=== PATIENT | female | born 1935 | race Caucasian/White ===

== ENCOUNTER 2017-04-14 18:10 | Emergency (ER) | END 2017-04-14 21:53 | disposition home or self-care (01) ==

== ENCOUNTER 2018-11-02 19:48 | Emergency (ER) | payer MEDICARE, OTHER ==
[~2018-11-02] VITALS: Ht 167.6 cm; Wt 91.1 kg
[~2018-11-02 19:48] MED LIST: ALEN35TA12 PO; AMIO100T3 PO; AMOX1TAB10 PO; CEPH-443 PO; DOCU-144 PO; FAMO20TA18 PO; FURO20TA3 PO; GABA300C16 PO; METO-319 PO; METR-121 PO; POLY17PO6 PO; RSV10T PO; VALS160T20 PO
[2018-11-02 19:51] VITALS: Ht 167.6 cm; Wt 91.1 kg
--- NOTE | 2018-11-03 00:14 | ERD ---
ER Documentation Chief Complaint Chief Complaint constipated x 3 days; always freezing; took PeptoBismol ALICE Is a pleasant 83-year-old female presents for constipation for the last 3 days. She took Pepto-Bismol without relief, there are no aggravating factors, she has a history of recurrent constipation, she denies any vomiting, she has not a fever, she has no chest pain shortness of breath, her symptoms are intermittent. They described as dull. ROS All systems reviewed and are negative except as per history of present illness. Medications Home Meds Active Scripts Metronidazole (Flagyl) 500 Mg Tab, 500 MG PO Q8 for 10 Days, TAB Prov:GEOFFREY GREGG MD 11/03/18 Amoxicillin/Potassium Clav (Amox-Clav 875-125 mg Tablet) 875-125 mg Tab, 1 TAB PO BID for 10 Days, #20 TAB Prov:GEOFFREY GREGG MD 11/03/18 Cephalexin* (Keflex*) 500 Mg Capsule, 500 MG PO QID for 5 Days, CAP Prov:GEOFFREY LIMON MD 04/14/17 Polyethylene Glycol* (Miralax*) 17 Gm Powd.pack, 17 GM PO DAILY for CONSTIPATION, #1 BOTTLE Prov:GEOFFREY LIMON MD 04/14/17 Docusate Sodium* (Colace*) 100 Mg Capsule, 100 MG PO BID for CONSTIPATION, #30 CAP Prov:GEOFFREY LIMON MD 04/14/17 Reported Medications Rosuvastatin Calcium* (Crestor*) 10 Mg Tablet, 10 MG PO QHS, #30 TAB 04/14/17 Alendronate Sodium* (Alendronate Sodium*) 35 Mg Tablet, 35 MG PO Q7D, #4 TAB 04/14/17 Gabapentin* (Gabapentin*) 300 Mg Capsule, 300 MG PO TID, #90 CAP 04/14/17 Amiodarone Hcl* (Pacerone*) 100 Mg Tablet, 100 MG PO BID, TAB 04/14/17 Metoprolol Succinate* (Toprol XL*) 50 Mg Tab.er.24h, 50 MG PO DAILY, #30 TAB 04/14/17 Famotidine* (Famotidine*) 20 Mg Tablet, 20 MG PO BID, #60 TAB 04/14/17 Furosemide* (Furosemide*) 20 Mg Tablet, 20 MG PO DAILY, #60 TAB 04/14/17 Discontinued Reported Medications Valsartan* (Diovan*) 160 Mg Tablet, 160 MG PO DAILY, TAB 04/14/17 Allergies Allergies: Coded Allergies: No Known Allergy (Unverified , 11/03/18) PMhx/Soc History of Surgery: Yes (PACEMAKER) Anesthesia Reaction: No Hx Neurological Disorder: Yes (NEUROPATHY) Hx Respiratory Disorders: No Hx Cardiac Disorders: Yes (HTN, HYPERLIPIDS) Hx Psychiatric Problems: No Hx Miscellaneous Medical Probl: Yes (HYPERLIPEDEMIA) Hx Alcohol Use: No Hx Substance Use: No Hx Tobacco Use: No Smoking Status: Never smoker Physical Exam Vitals Vital Signs Date Temp Pulse Resp B/P (MAP) Pulse Ox O2 O2 Flow FiO2 Time Delivery Rate 11/03/18 98.0 59 17 107/63 97 Room Air 00:52 (78) 11/02/18 62 18 113/58 95 Room Air 21:28 (76) 11/02/18 99.0 82 20 118/57 94 19:51 (77) Physical Exam Const: No acute distress Head: Atraumatic Eyes: Normal Conjunctiva ENT: Normal External Ears, Nose and Mouth. Neck: Full range of motion. No meningismus. Resp: Clear to auscultation bilaterally Cardio: Regular rate and rhythm, no murmurs Abd: Soft, non tender, non distended, no rebound or guarding, there is very minimal tenderness in the epigastric area. Normal bowel sounds Skin: No petechiae or rashes Back: No midline or flank tenderness Ext: No cyanosis, or edema Neur: Awake and alert Psych: Normal Mood and Affect Result Diagram: 11/02/18211611/02/182116 Results 24 hrs Laboratory Tests Test 11/02/18 21:17 11/02/18 23:50 White Blood Count 14.8 10^3/ul Red Blood Count 3.95 10^6/ul Hemoglobin 12.1 g/dl Hematocrit 38.4 % Mean Corpuscular Volume 97.2 fl Mean Corpuscular Hemoglobin 30.6 pg Mean Corpuscular Hemoglobin Concent 31.5 g/dl Red Cell Distribution Width 14.0 % Platelet Count 198 10^3/UL Mean Platelet Volume 8.9 fl Immature Granulocytes % 0.500 % Neutrophils % 86.0 % Lymphocytes % 7.2 % Monocytes % 5.4 % Eosinophils % 0.6 % Basophils % 0.3 % Nucleated Red Blood Cells % 0.0 /100WBC Immature Granulocytes # 0.070 10^3/ul Neutrophils # 12.7 10^3/ul Lymphocytes # 1.1 10^3/ul Monocytes # 0.8 10^3/ul Eosinophils # 0.1 10^3/ul Basophils # 0.0 10^3/ul Nucleated Red Blood Cells # 0.0 10^3/ul Sodium Level 139 mmol/L Potassium Level 4.2 mmol/L Chloride Level 103 mmol/L Carbon Dioxide Level 30 mmol/L Anion Gap 6 Blood Urea Nitrogen 20 mg/dl Creatinine 1.16 mg/dl Est Glomerular Filtrat Rate mL/min mL/min Glucose Level 89 mg/dl Calcium Level 9.4 mg/dl Total Bilirubin 0.8 mg/dl Direct Bilirubin 0.00 mg/dl Indirect Bilirubin 0.8 mg/dl Aspartate Amino Transf (AST/SGOT) 27 IU/L Alanine Aminotransferase (ALT/SGPT) 25 IU/L Alkaline Phosphatase 50 IU/L Troponin I < 0.012 ng/ml Total Protein 7.4 g/dl Albumin 4.0 g/dl Globulin 3.40 g/dl Albumin/Globulin Ratio 1.17 Lipase 296 U/L Urine Color YELLOW Urine Clarity CLOUDY Urine pH 8.0 Urine Specific [place] 1.011 Urine Ketones NEGATIVE mg/dL Urine Nitrite POSITIVE mg/dL Urine Bilirubin NEGATIVE mg/dL Urine Urobilinogen 1+ mg/dL Urine Leukocyte Esterase TRACE Jennifer/ul Urine Microscopic RBC 4 /HPF Urine Microscopic WBC 7 /HPF Urine Squamous Epithelial Cells FEW /HPF Urine Amorphous Crystals FEW /HPF Urine Bacteria FEW /HPF Urine Mucus FEW /HPF Urine Hemoglobin NEGATIVE mg/dL Urine Glucose NEGATIVE mg/dL Urine Total Protein NEGATIVE mg/dl Current Medications Medications Dose Sig/Joe Start Time Status Last (Trade) Ordered Route PRN Stop Time Admin Dose Reason Admin 875 mg ONCE ONCE 11/03/18 DC 11/03/18 Amoxicillin/ PO 00:30 00:36 Clavulanate 11/03/18 00:31 Potassium (Augmentin) 500 mg ONCE ONCE 11/03/18 DC 11/03/18 Metronidazole PO 00:30 00:36 (Flagyl) 11/03/18 00:31 Procedures/MDM This is a very pleasant 83-year-old female presents for abdominal pain. On exam she had no peritoneal signs, she did not have pain out of proportion to exam, no history of physical is not consistent with mesenteric ischemia. Her labs note a week leukocytosis, and a CT was performed, CT showing inflammatory changes mesentery, possible panniculitis, but also consider enteritis. Discussed findings with patient, offered observation admission, versus outpatient management, patient preferred to discharge home, will treat empirically for early GI infection with Augmentin and Flagyl, strict return precautions were given at discharge patient in no distress. Departure Diagnosis: Primary Impression: Abdominal pain Abdominal location: unspecified location Qualified Codes: R10.9 - Unspecified abdominal pain Condition: Stable GEOFFREY GREGG MD Nov 03, 2018 00:14
[2018-11-03] MEDS ORDERED: AMOXICILLIN/CLAV 875 MG TAB PO ONE (00:30)
[2018-11-03] MEDS ORDERED: metroNIDAZOLE 500 MG TAB PO ONE (00:30)
[2018-11-03 00:52] VITALS: BP 107/63; PULSE 59; RESP 17
== END 2018-11-03 00:52 | disposition home or self-care (01) ==
LOC: E/R 19:48
DX: R10.9 Unspecified abdominal pain (principal); I10 Essential (primary) hypertension; Z95.0 Presence of cardiac pacemaker
CPT/HCPCS: 36415; 74176; 80053; 81001; 83690; 84484; 85025